=== PATIENT | female | born 1985 | race Caucasian/White ===

== ENCOUNTER → 2017-04-23 | Outpatient (CLI) | payer OTHER | END | disposition home or self-care (01) | LOC: RADPV 12:59 | PROVIDERS: ATTEND Advanced Practice Midwife | DX: Z34.82 Encounter for supervision of other normal pregnancy, second trimester (principal); Z3A.18 18 weeks gestation of pregnancy | CPT/HCPCS: 76805 ==

== ENCOUNTER → 2017-06-28 | Outpatient (CLI) | payer OTHER ==
[~2017-06-28] MED LIST: DSS100 PO; IBUP-2070 PO; PNV11TAB PO
== END | disposition home or self-care (01) ==
LOC: LABMN 02:02
PROVIDERS: ATTEND Advanced Practice Midwife
DX: Z34.82 Encounter for supervision of other normal pregnancy, second trimester (principal); Z3A.25 25 weeks gestation of pregnancy
CPT/HCPCS: 82947

== ENCOUNTER 2017-08-20 11:30 | Observation (INO) | payer OTHER ==
[~2017-08-20] VITALS: Ht 165.1 cm; Wt 72.6 kg
[2017-08-20] MEDS ORDERED: PNV11TAB PO (12:19)
[2017-08-20 12:58] VITALS: BP 119/61
== END 2017-08-20 13:45 | disposition home or self-care (01) ==
LOC: 4S 11:30
PROVIDERS: ADMIT Obstetrics & Gynecology; ATTEND Obstetrics & Gynecology
DX: Z34.03 Encounter for supervision of normal first pregnancy, third trimester (principal); Z3A.35 35 weeks gestation of pregnancy
CPT/HCPCS: 59025; 76816; G0378

== ENCOUNTER 2017-08-22 07:35 | Observation (INO) | payer OTHER ==
[~2017-08-22] VITALS: Ht 170.2 cm; Wt 86.2 kg
[~2017-08-22 07:35] MED LIST changes: -DSS100 PO; -IBUP-2070 PO
[2017-08-22 07:56] VITALS: BP 105/69
== END 2017-08-22 08:40 | disposition home or self-care (01) ==
LOC: 4S 07:35
PROVIDERS: ADMIT Obstetrics & Gynecology; ATTEND Obstetrics & Gynecology
DX: Z34.03 Encounter for supervision of normal first pregnancy, third trimester (principal); Z3A.35 35 weeks gestation of pregnancy
CPT/HCPCS: 59025; G0378

== ENCOUNTER 2017-08-26 08:18 | Observation (INO) | payer OTHER ==
[~2017-08-26] VITALS: Ht 165.1 cm; Wt 88.0 kg
[2017-08-26 08:41] VITALS: BP 109/61
== END 2017-08-26 11:10 | disposition home or self-care (01) ==
LOC: 4S 08:18
PROVIDERS: ADMIT Obstetrics & Gynecology; ATTEND Obstetrics & Gynecology
DX: O36.5930 Maternal care for other known or suspected poor fetal growth, third trimester, not applicable or unspecified (principal); Z3A.36 36 weeks gestation of pregnancy
CPT/HCPCS: 59025; 76805; G0378

== ENCOUNTER 2017-08-29 09:30 | Observation (INO) | payer OTHER ==
[~2017-08-29] VITALS: Ht 170.2 cm; Wt 86.2 kg
[2017-08-29 09:50] VITALS: BP 109/67
== END 2017-08-29 10:15 | disposition home or self-care (01) ==
LOC: 4S 09:30
PROVIDERS: ADMIT Obstetrics & Gynecology; ATTEND Obstetrics & Gynecology
DX: O26.893 Other specified pregnancy related conditions, third trimester (principal); R10.9 Unspecified abdominal pain; Z3A.36 36 weeks gestation of pregnancy
CPT/HCPCS: 59025; G0378

== ENCOUNTER 2017-09-02 10:41 | Observation (INO) | payer OTHER ==
[~2017-09-02] VITALS: Ht 165.1 cm; Wt 89.4 kg
[2017-09-02 10:50] VITALS: BP 114/61
== END 2017-09-02 11:40 | disposition home or self-care (01) ==
LOC: 4S 10:41
PROVIDERS: ADMIT Obstetrics & Gynecology; ATTEND Obstetrics & Gynecology
DX: O26.853 Spotting complicating pregnancy, third trimester (principal); O26.893 Other specified pregnancy related conditions, third trimester; M54.5 Low back pain; Z3A.37 37 weeks gestation of pregnancy
CPT/HCPCS: 59025; 76805; G0378

== ENCOUNTER 2017-09-04 13:35 | Observation (INO) | payer OTHER ==
[~2017-09-04] VITALS: Ht 170.2 cm; Wt 90.3 kg
[2017-09-04 14:00] VITALS: BP 102/61
== END 2017-09-04 15:10 | disposition home or self-care (01) ==
LOC: 4S 13:35
PROVIDERS: ADMIT Obstetrics & Gynecology; ATTEND Obstetrics & Gynecology
DX: Z34.03 Encounter for supervision of normal first pregnancy, third trimester (principal); Z3A.37 37 weeks gestation of pregnancy
CPT/HCPCS: 59025; G0378

== ENCOUNTER 2017-09-07 15:50 | Inpatient (IN) | payer OTHER ==
[~2017-09-07] VITALS: Ht 152.4 cm; Wt 90.3 kg
[2017-09-07] MEDS ORDERED: RINGERS SOLUTION,LACTATED 1,000 ML IV PRN (17:29)
[2017-09-07] MEDS ORDERED: METOCLOPRAMIDE HCL 5 MG/ML 2 ML VIAL IVP PRN (17:30)
[2017-09-07] MEDS ORDERED: OXYTOCIN 20 UNITS/LACT RINGERS 1,000 ML IV ONE (17:30)
[2017-09-07] MEDS ORDERED: LIDOCAINE HCL/PF 1% 30 ML VIAL INJ PRN (17:30)
[2017-09-07] MEDS ORDERED: CITRIC ACID/SODIUM CITRATE 30 ML SOLUTION UDCUP PO PRN (17:30)
[2017-09-07] MEDS ORDERED: METHYLERGONOVINE MALEATE 0.2 MG/ML VIAL IM PRN (17:30)
[2017-09-07 17:59] VITALS: BP 118/63
[2017-09-07] MEDS: MISOPROSTOL 25 MCG TABLET VG SCH ×2 (18:03→22:48)
[2017-09-07 18:18] LABS: BASOPHILS # (AUTO) 0.04 K/uL (0.00-0.20); BASOPHILS % (AUTO) 0.3 % (0.0-2.0); EOSINOPHILS # (AUTO) 0.03 K/uL (0.00-0.70); EOSINOPHILS % (AUTO) 0.27 % (1.0-6.0); HEMATOCRIT 35.5 % (36-46); LYMPHOCYTES # (AUTO) 2.2 K/uL (1.0-4.8); LYMPHOCYTES % (AUTO) 19.9 % (22.0-44.0); MEAN CORPUSCULAR HEMOGLOBIN 31.4 pg (26.0-34.0); MEAN CORPUSCULAR HGB CONC 33.9 G/dL (31.0-37.0); MEAN CORPUSCULAR VOLUME 93 fL (80-100); MONOCYTES # (AUTO) 0.6 K/uL (0.1-1.0); MONOCYTES % (AUTO) 5.7 % (2.0-9.0); NEUTROPHILS # (AUTO) 8.2 K/uL (1.8-7.7); NEUTROPHILS % (AUTO) 73.7 % (40.0-70.0); PLATELET COUNT (AUTO)-OB 173 K/uL (150-450); RED BLOOD CELL COUNT(AUTO) 3.83 MIL/uL (4.00-5.20); RED CELL DISTRIBUTION WIDTH 14.1 % (11.5-14.5)
[2017-09-07] MEDS ORDERED: OXYGEN THERAPY IH SCH (20:00)
[2017-09-08] MEDS: RINGERS SOLUTION,LACTATED 1,000 ML IV SCH ×5 (01:47→13:45)
[2017-09-08] MEDS ORDERED: AMPICILLIN SODIUM 2 GM/NS 100 ML IV SCH (02:00)
[2017-09-08] MEDS: MISOPROSTOL 25 MCG TABLET VG SCH (02:29)
[2017-09-08] MEDS: FentaNYL CITRATE-PF 100 MCG/2 ML VIAL IVP PRN ×2 (04:19→04:25)
[2017-09-08] MEDS ORDERED: FentaNYL/BUPIV 0.125%/NS/PF 200 ML ED ONE (06:03)
[2017-09-08] MEDS ORDERED: FentaNYL/BUPIV 0.125%/NS/PF 200 ML ED PRN (06:55)
[2017-09-08] MEDS ORDERED: DiphenhydrAMINE HCL 50 MG/ML VIAL IVP PRN (07:00)
[2017-09-08] MEDS ORDERED: ONDANSETRON HCL 4 MG/2 ML VIAL IVP PRN (07:00)
[2017-09-08] MEDS ORDERED: OXYTOCIN 30 UNITS/LACT RINGERS 500 ML IV PRN (07:08)
[2017-09-08] MEDS: AMPICILLIN SODIUM 1 GM/NS 50 ML IV SCH ×2 (07:16→11:01)
[2017-09-08] MEDS ORDERED: ACETAMINOPHEN 1000 MG/ISO-OSM 100 ML IV ONE (08:15)
[2017-09-08] MEDS ORDERED: SODIUM CHLORIDE 0.9% 1,000 ML IV ONE (11:56)
[2017-09-08] MEDS ORDERED: RINGERS SOLUTION,LACTATED 1,000 ML IV ONE ×3 (12:41→16:32)
[2017-09-08] MEDS ORDERED: OxyCODONE HCL/ACETAMINOPHEN 5-325 MG TABLET PO PRN ×2 (16:45)
[2017-09-08] MEDS ORDERED: MEASLES/MUMPS/RUBELLA VACCINE, LIVE 0.5 ML/VIAL SQ ONE (16:45)
[2017-09-08] MEDS ORDERED: LANOLIN 7 GM OINTMENT TP PRN (16:45)
[2017-09-08] MEDS: BENZOCAINE 20%/MENTHOL 56 GM SPRAY CANISTER TP PRN (18:21)
[2017-09-08] MEDS: GLYCERIN/WITCH HAZEL LEAF 40 PADS JAR TP PRN (18:21)
[2017-09-08] MEDS: IBUPROFEN 600 MG TABLET PO PRN ×2 (18:21→23:54)
[2017-09-08] MEDS: MAGNESIUM HYDROXIDE SUSPENSION 30 ML UDCUP PO SCH (23:54)
[2017-09-09] MEDS: IBUPROFEN 600 MG TABLET PO PRN ×2 (06:27→13:56)
[2017-09-09] MEDS: GLYCERIN/WITCH HAZEL LEAF 40 PADS JAR TP PRN (07:58)
[2017-09-09] MEDS: MAGNESIUM HYDROXIDE SUSPENSION 30 ML UDCUP PO SCH (07:58)
[2017-09-09] MEDS: BENZOCAINE 20%/MENTHOL 56 GM SPRAY CANISTER TP PRN (07:58)
[2017-09-09] MEDS ORDERED: DSS100 PO (09:52)
[2017-09-09] MEDS ORDERED: IBUP-2070 PO (09:52)
== END 2017-09-09 19:00 | disposition home or self-care (01) | DRG 775 ==
LOC: 4S 15:50 → OBSVTOIN 15:50
PROVIDERS: ADMIT Obstetrics & Gynecology; ATTEND Obstetrics & Gynecology
PROC: 0HQ9XZZ Repair Perineum Skin, External Approach (ICD-10-PCS; principal; 2017-09-08)
PROC: 10E0XZZ Delivery of Products of Conception, External Approach (ICD-10-PCS; 2017-09-08)
PROC: 3E0R3BZ Introduction of Anesthetic Agent into Spinal Canal, Percutaneous Approach (ICD-10-PCS; 2017-09-08)
PROC: 00HU33Z Insertion of Infusion Device into Spinal Canal, Percutaneous Approach (ICD-10-PCS; 2017-09-08)
DX: O42.12 Full-term premature rupture of membranes, onset of labor more than 24 hours following rupture (principal); O70.0 First degree perineal laceration during delivery; Z37.0 Single live birth; Z3A.38 38 weeks gestation of pregnancy
CPT/HCPCS: 76815; 86850; 86900; 86901; 89060; J0131; J0290; J2590; J2765; J3010; J3490; J7030; J7120